=== PATIENT | male | born 1995 | race Caucasian/White ===

== ENCOUNTER 2018-03-03 00:31 | Emergency (ER) | payer MEDICARE, MEDICAID ==
[~2018-03-03] VITALS: Ht 182.9 cm; Wt 65.8 kg
[2018-03-03] MEDS ORDERED: TERBINAFINE HC250 MG PO (01:27)
[2018-03-03] MEDS ORDERED: KETOCONAZOLE15 GM TOP (01:30)
[2018-03-03] MEDS ORDERED: CLOBEX118 ML TOP (01:30)
[2018-03-03 01:52] VITALS: BP 0/0
== END 2018-03-03 01:54 | disposition home or self-care (01) ==
LOC: M.ERS 00:31
DX: B35.3 Tinea pedis (principal)